=== PATIENT | female | born 1980 | race Caucasian/White ===

== ENCOUNTER 2019-03-06 05:10 | Inpatient (IN) | payer MEDICAID ==
[~2019-03-06] VITALS: Ht 162.6 cm; Wt 63.5 kg
[2019-03-06] VITALS (16 sets, daily range): BP systolic 90–111; BP diastolic 51–69; Ht 162.6 cm; Wt 63.5 kg
[~2019-03-06 05:10] MED LIST: ALB17R INH; AMO500 PO; AMOX500T10 PO; FERR325T24 PO; NAPR220C12 PO; PREN-67 PO
[2019-03-06] MEDS ORDERED: LR(*) 1000 ML BAG 1,000 ML IV SCH (05:11)
[2019-03-06] MEDS ORDERED: BUPIVACAINE 0.5% INJ 30ML VIAL EPI PRN (05:15)
[2019-03-06] MEDS ORDERED: LIDOCAINE/PF 2% 200MG/10ML AMP 200 MG/10 ML AMPUL EPI PRN (05:15)
[2019-03-06] MEDS ORDERED: cefOXitin/DEX(*) 2GM/50ML PREM 50 ML IVPB ONE (05:15)
[2019-03-06] MEDS ORDERED: LIDO/EPI 2% MPF 1:200,000 20ML EPI PRN (05:15)
[2019-03-06] MEDS ORDERED: FAMOTIDINE 20 MG/50 ML PREMIX IVPB ONE (05:15)
[2019-03-06] MEDS ORDERED: CITRIC ACID/SOD CITRATE 30 ML PO ONE (05:15)
[2019-03-06] MEDS ORDERED: BUPIVACAINE 0.25% MPF INJ EPI PRN (05:15)
[2019-03-06] MEDS ORDERED: METOCLOPRAMIDE 10 MG/2 ML SDV IVP ONE (05:15)
[2019-03-06] MEDS ORDERED: FENTANYL/ROPIVACAINE 100 ML BAG EPI PRN (05:15)
[2019-03-06] MEDS ORDERED: fentaNYL CITR 100 MCG/2 ML AMP IT PRN (05:15)
[2019-03-06] MEDS ORDERED: ONDANSETRON 4 MG/2 ML VIAL IVP PRN (05:15)
[2019-03-06 06:00] LABS: PLATELET COUNT, AUTOMATED 229 K/uL (150-450)
[2019-03-06] MEDS ORDERED: CITRIC ACID/SOD CIT 15 ML UDC ONE (06:01)
[2019-03-06] MEDS ORDERED: fentaNYL CITR 100 MCG/2 ML AMP ONE (06:11)
[2019-03-06] MEDS ORDERED: PHENYLEPHRINE 10 MG/1 ML VIAL ONE (06:11)
[2019-03-06] MEDS ORDERED: OXYTOCIN 10 UNIT/ML SDV ONE (06:11)
[2019-03-06] MEDS ORDERED: KETOROLAC 30 MG/ML VIAL ONE (06:12)
[2019-03-06] MEDS ORDERED: METHYLERGONOVINE MAL 0.2MG/ML ONE (06:43)
[2019-03-06] MEDS ORDERED: MISOPROSTOL 200 MCG TAB ONE (06:43)
[2019-03-06] MEDS ORDERED: CARBOPROST TROMETHAM 250MCG/ML IM ONLY ONE (06:43)
[2019-03-06] MEDS ORDERED: DLR(*) 1000 ML BAG 1,000 ML IV PRN (08:44)
[2019-03-06] MEDS ORDERED: OXYTOCIN 30 UNIT/NS 500 ML 500 ML IV PRN (08:44)
[2019-03-06] MEDS ORDERED: SIMETHICONE 80 MG CHEW CHEW PRN (08:45)
[2019-03-06] MEDS ORDERED: ONDANSETRON 4 MG/2 ML VIAL IV PRN (08:45)
[2019-03-06] MEDS ORDERED: INFLUENZA VIRUS VAC 0.5ML SYR IM ONE (08:45)
[2019-03-06] MEDS ORDERED: PROMETHAZINE 25 MG/ML 1 ML AMP IVP PRN (08:45)
[2019-03-06] MEDS ORDERED: LANOLIN OINT 7 GM TUBE TP PRN (08:45)
[2019-03-06] MEDS ORDERED: MEASLES,MUMP,RUBELLA VAC 0.5ML SUBQ ONE (08:45)
[2019-03-06] MEDS ORDERED: ZOLPIDEM TARTRATE 5 MG TAB PO PRN (08:45)
[2019-03-06] MEDS ORDERED: DIPHTH/TETANUS/ACEL. PERTUSSIS IM ONLY ONE (08:45)
[2019-03-06] MEDS ORDERED: ACETAMINOPHEN 325 MG TAB PO PRN (08:45)
[2019-03-06] MEDS ORDERED: IBUPROFEN 800 MG TAB PO SCH (09:00)
[2019-03-06] MEDS: FAMOTIDINE 20 MG TAB PO SCH ×2 (09:00→21:00)
--- NOTE | 2019-03-06 09:09 | Anesthesia OB Pre-Anes Eval ---
History of Present Illness Anesthesia Start Date: Mar 06, 2019 Anesthesia Start Time: 07:02 OB Anesthesia Diagnosis: repeat c/section EDC: Mar 10, 2019 : 6 Para: 4 Pain Ratin Heart Tones: 132 Result Diagram: 03/06/19 0547 Height (Inches): 64 Weight (Pounds): 140 Past Medical History Medical History: illicit drug use (Meth 1st trimester), other (smoker) Surgical History: Previous Anesthesia: spinal Attended Childbirth Classes?: No Hx Anesthesia Reactions: No Hx Family Anesthesia Reaction: No Home Meds Active Scripts Amoxicillin 500 Mg Tab (AMOXICILLIN 500 MG TAB) 500 Mg Tablet, 1 TAB PO Q8H for infection, #30 TAB Prov:ADAM MARTINEZ DO 04/09/15 Allergies: Coded Allergies: No Known Drug Allergies (Verified , 04/09/15) Anesthesia OB ROS Neurological: No migraines/headaches, No seizures, No neuropathy, No other ENT: Denies Tooth caps, Denies Loose teeth, Denies Chipped teeth, Denies Dentures, Denies Bridges, Denies Retainers, Denies Veneers, Denies Implants, Denies Tongue ring, Denies Other Pulmonary: smoker (pks/day/yrs) (1ppd) Airway Class: l Cardiovascular ROS: other (MVP) GI ROS: NPO Last Solids Date: Mar 05, 2019 Last Solids Time: 23:00 ROS: No Herpes, No STD(s), No Liver Disease, No Renal Disease, No Other Endocrine ROS: No diabetes, No gestational diabetes, No thyroid disorder, No other Musculoskeletal ROS: No low back pain, No low back injury, No scoliosis, No other ASA Classification: 2 Assessment and Plan Anesthesia Plan: SAB Anesthesia Stop Day: Mar 06, 2019 Anesthesia Stop Time: 08:50 NISHA GUZMAN CRNA Mar 06, 2019 09:09
[2019-03-06] MEDS ORDERED: FERR325T24 PO (09:19)
[2019-03-06] MEDS ORDERED: PREN-127 PO (09:19)
--- NOTE | 2019-03-06 09:31 | Post Operative Note ---
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
--- NOTE | 2019-03-06 09:39 | History & Physical ---
History of Present Illness Age of Patient: 38 : 6 Para or TPAL: 4 EDC per LMP: Mar 10, 2019 Estimated Gestational Age: 39.3 Chief Complaint History of Present Illness Presents for planned at 39 weeks. History of one prior with twin . This initially complicated by early methamphetamine use and she has been in rehab since and successful. She had a level 2 u/s that was negative for anomalies. She also desires sterilization. Past Medical, Surgical, Family and Obstetric Histories reviewed. [place] [facility] [place] History Patient's Blood Type: O Positive Rubella Status: Immune Obstetrical History: c/s x 1 Allergies: Coded Allergies: No Known Drug Allergies (Verified , 04/09/15) Med Rec Home Meds Reported Medications Ferrous Sulfate (IRON) 325 Mg Tablet, 325 MG PO 03/06/19 Vits W-Ca,Fe,Fa(<1MG) ( VITAMINS) 1 Each Tablet, 1 EACH PO DAILY, TAB 03/06/19 Discontinued Scripts Amoxicillin 500 Mg Tab (AMOXICILLIN 500 MG TAB) 500 Mg Tablet, 1 TAB PO Q8H for infection, #30 TAB Prov:JUANADAM Aldnaa DO 04/09/15 Review of Systems All Systems Reviewed/Normal: Yes, Except as Noted Exam General Exam Vital Signs Vital Signs Date Time Temp Pulse Resp B/P (MAP) Pulse Ox O2 Delivery O2 Flow Rate FiO2 03/06/19 09:15 63 18 96/65 (75) 100 Nasal Cannula 2.0 03/06/19 09:05 97.5 General Apperance: Alert/Awake/No Acute Distress Neuro: No Gross deficits Eyes: Normal Extraocular Movement & Vison ENT: Normal Cardiovascular: Regular Rate and Rhythm Respiratory: No Respiratory Distress Abdomen: Soft, Non-Tender, Non-Distended Extremities: No Cyanosis,Clubbing or Edema Integumentary: Skin Intact without Lesions or Rash Psychological: Alert & Oriented X3 Fetus FHT Category: I Medical Decision Making Data Points Result Diagram: 03/06/19 0547 VTE Prophylasis: Adult Deep Vein Thrombosis/Pulmonary: No Pharmacological Contraindicati: Pt at Low Risk for VTE Mechanical Contraindications: Pt at Low Risk for VTE 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 Reviewed pros/cons again and she desires. EVERTON MOLINA MD Mar 06, 2019 09:39
--- NOTE | 2019-03-06 09:56 | OPERATIVE REPORT 1 ---
EVENT DATE: March 06, 2019 SURGEON: Epifanio Thomas MD ANESTHESIA: Spinal, Kristen Jackson, RONALD FOAM RUBBER MOLDER: Thu Davison PA-C PREOPERATIVE DIAGNOSIS 1. Previous section. 2. 39 weeks intrauterine . 3. 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 4. Desired sterilization. POSTOPERATIVE DIAGNOSIS 1. Previous section. 2. 39 weeks intrauterine . 3. 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 4. Desired sterilization. PROCEDURE PERFORMED 1. Repeat low transverse section via Pfannenstiel skin incision. 2. tubal ligation. ESTIMATED BLOOD LOSS 500 cc. FLUIDS 1000 cc IV Crystalloid. URINE OUTPUT 225 cc. FINDINGS Female , cephalic. Apgars 9 and 10. Weight 2752 grams. Normal appearing uterus, tubes and ovaries. DESCRIPTION OF PROCEDURE The patient was brought to the operating room and spinal anesthetic was administered. She was then moved to the dorsal supine position with a leftward tilt and prepped and draped in the usual sterile fashion. A Pfannenstiel skin incision was made dissecting out the previous scar, and carried down through the rectus fascia. This was then extended laterally using the Muse scissors and the rectus fascia was dissected off the underlying rectus musculature using the Bovie. Muscles were in the midline. The peritoneum was entered sharply and extended superiorly and inferiorly and put on lateral stretch. The bladder blade was inserted. This exposed the lower uterine segment. The vesicouterine peritoneum was elevated and entered sharply and a bladder flap was created digitally. This was extended digitally using the scalpel. A low- transverse incision was made on the uterus and carried through to the intraamniotic space. There was clear fluid upon amniotomy. The incision was extended manually and a hand was inserted. The 's head was elevated through the incision when fundal pressure was applied. The infant's head delivered atraumatically. Mouth and nose were bulb suctioned, followed by further fundal pressure effecting delivery of the remainder of the baby without difficulty. The cord was clamped, cut and the was resuscitated and passed to the awaiting resuscitation team. Cord sample was obtained. The placenta was delivered manually. The uterus was exteriorized and cleared of clots and debris. Martínez clamps were placed for hemostasis while the uterine repair was performed with #1 Monocryl in a running locking stitch. A second suture of the same type was used to imbricate the first layer completing the two-layer closure. Upon completion of the uterine incision was completely hemostatic. Therefore, attention was turned to the tubal ligation in which the right fallopian tube was grasped with a Nayeli clamp in the isthmic portion. A knuckle of tube was created with a plain-gut tie and then it was doubly ligated. A 2 cm segment of tube was excised. The same procedure was followed on the contralateral side in likewise fashion, excising the 2 cm segment of tube. This was sent to pathology. All sites were hemostatic. Therefore, the uterus was returned to the abdomen and bilateral pelvic gutters were irrigated until cleared of clots and debris. The parietal peritoneum was repaired using a 3-0 Vicryl in a running nonlocking stitch. The rectus muscles were reapproximated in the midline with the same stitch. A few capillary bleeders were cauterized. The rectus fascia was repaired with an 0 Vicryl in a running nonlocking stitch. The subcuticular space was then irrigated and blotted dry and capillary bleeders were cauterized. The space was then closed with a 3-0 Vicryl plus in a running nonlocking stitch. The skin was repaired with a 4-0 Monocryl simple subdermal and covered with Dermabond skin adhesive. She tolerated the procedure. Sponge, lap, needle, and instrument counts were all correct x3. She was taken to recovery in stable condition. MALGORZATA
[2019-03-06] MEDS: oxyCODON/ACET (*)5/325MG (CII) 1 TAB TAB PO PRN ×3 (10:04→17:43)
[2019-03-06] MEDS: DOCUSATE CALCIUM 240 MG CAP PO SCH ×2 (10:05→21:00)
[2019-03-06] MEDS: NICOTINE 14 MG/24 HR PATCH TD SCH (10:07)
[2019-03-06] MEDS: KETOROLAC 30 MG/ML VIAL IVP SCH ×2 (13:17→19:14)
[2019-03-07] MEDS: oxyCODON/ACET (*)5/325MG (CII) 1 TAB TAB PO PRN ×6 (01:30→21:01)
[2019-03-07] MEDS: KETOROLAC 30 MG/ML VIAL IVP SCH (01:32)
[2019-03-07 03:14] VITALS: BP 88/57
[2019-03-07 06:34] LABS: PLATELET COUNT, AUTOMATED 188 K/uL (150-450)
[2019-03-07 07:37] VITALS: BP 90/55
--- NOTE | 2019-03-07 08:01 | OB/GYN Progress Note ---
OB Subjective Progress Notes Subjective Doing well. Pain well controlled and ambulating well. Stephens removed but has not voided yet. Tolerating regular diet. GI: NEG Nausea : Voiding Well Pain: Mild OB Objective Physical Exam Vital Signs Date Time Temp Pulse Resp B/P (MAP) Pulse Ox O2 Delivery O2 Flow Rate FiO2 03/07/19 03:14 73 16 88/57 (67) 91 Room Air 03/06/19 23:17 98.0 03/06/19 19:28 1.0 Intake and Output 03/07/19 07:01 Intake Total 2460 ml Output Total 4500 ml Balance -2040 ml Intake Oral 1460 ml IV Total 1000 ml Output Urine Total 4500 ml General Appearance: Alert/Awake/No Acute Distress Neurological: No Gross deficits Eyes: Normal Extraocular Movement & Vison Cardiovascular: Normal Rhythm & Peripheral Pulses, Regular Rate and Rhythm Respiratory: No Respiratory Distress, Clear to Auscultation Abdomen: Soft, Non-Tender, Non-Distended Incision: Clean, Dry, Intact, Dermabond Extremities: No Cyanosis,Clubbing or Edema Integumentary: Skin Intact without Lesions or Rash Psychological: Alert & Oriented X3, Appropriate Mood & Affect Result Diagram: 03/07/19 0606 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 Nursing assistance and comfort care. EVERTON MOLINA MD Mar 07, 2019 08:01
[2019-03-07] MEDS: DOCUSATE CALCIUM 240 MG CAP PO SCH ×2 (09:06→21:01)
[2019-03-07] MEDS: IBUPROFEN 800 MG TAB PO SCH ×2 (09:06→17:00)
[2019-03-07] MEDS: FAMOTIDINE 20 MG TAB PO SCH ×2 (09:06→21:01)
[2019-03-07] MEDS: NICOTINE 14 MG/24 HR PATCH TD SCH (09:11)
[2019-03-07 11:42] VITALS: BP 103/49
[2019-03-07 14:28] VITALS: BP 98/51
--- NOTE | 2019-03-07 17:44 | Anesthesia Post Eval Note ---
Anesthesia Post Eval Note Vital Signs 03/06/19 03/07/19 19:28 14:28 Temp 97.5 Pulse 76 Resp 16 B/P (MAP) 98/51 (67) Pulse Ox 93 O2 Delivery Room Air O2 Flow Rate 1.0 Pt able to participate in Eval: Yes Cardiovascular Status: Satisfactory Respiratory Status: Satisfactory Pain Managment: Satisfactory PO Nausea/Vomiting: Satisfactory Temperature Management: Satisfactory Mental Status: Satisfactory, Alert, Oriented X3 Post-Op Hydration Status: Satisfactory, Tolerating PO Well, Voiding w/o Difficulty Anesthesia Type: NISHA CORTES CRNA Mar 07, 2019 17:44
[2019-03-07 21:00] VITALS: BP 92/55
[2019-03-07 23:08] VITALS: BP 93/52
[2019-03-08] MEDS: IBUPROFEN 800 MG TAB PO SCH ×2 (00:57→09:23)
[2019-03-08] MEDS: oxyCODON/ACET (*)5/325MG (CII) 1 TAB TAB PO PRN ×3 (00:58→09:41)
[2019-03-08 03:10] VITALS: BP 95/57
[2019-03-08] MEDS ORDERED: OXYC-865 PO ×3 (08:17→09:21)
[2019-03-08] MEDS ORDERED: IBUP800T37 PO (08:17)
[2019-03-08] MEDS ORDERED: NICO1PAT87 TD (08:17)
--- NOTE | 2019-03-08 08:20 | OB/GYN Progress Note ---
OB Subjective Progress Notes Subjective Doing well. Pain well controlled and ambulating well. Has not showered yet. Voiding well. Ready to go home. GI: NEG Nausea : Voiding Well Pain: Mild OB Objective Physical Exam Vital Signs Date Time Temp Pulse Resp B/P (MAP) Pulse Ox O2 Delivery O2 Flow Rate FiO2 03/08/19 03:10 97.4 69 20 95/57 (70) 89 Room Air 03/06/19 19:28 1.0 Intake and Output 03/08/19 07:01 Intake Total 760 ml Output Total 1100 ml Balance -340 ml Intake Oral 760 ml Output Urine Total 1100 ml General Appearance: Alert/Awake/No Acute Distress Neurological: No Gross deficits Eyes: Normal Extraocular Movement & Vison Cardiovascular: Normal Rhythm & Peripheral Pulses, Regular Rate and Rhythm Respiratory: No Respiratory Distress, Clear to Auscultation Abdomen: Soft, Non-Tender, Non-Distended Incision: Clean, Dry, Intact, Dermabond Extremities: No Cyanosis,Clubbing or Edema Integumentary: Skin Intact without Lesions or Rash Psychological: Alert & Oriented X3, Appropriate Mood & Affect Result Diagram: 03/07/19 0606 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 F/U at office in 2 weeks. EVERTON MOLINA MD Mar 08, 2019 08:20
--- NOTE | 2019-03-08 08:21 | OB/GYN Discharge Summary ---
Discharge Summary Reason for Hosp/Final Diag: (1) Admission for sterilization (2) Previous section (3) Other specified aftercare following surgery Hospital Course & Plan: Reviewed discharge instructions and precautions. F/U at office in 2 weeks. Lates Vital Signs Vital Signs Date Time Temp Pulse Resp B/P (MAP) Pulse Ox O2 Delivery O2 Flow Rate FiO2 03/08/19 03:10 97.4 69 20 95/57 (70) 89 Room Air 03/06/19 19:28 1.0 Weight (Pounds): 140 Result Diagram: 03/07/19605 Condition: Improved Discharge: Home, Self Alf Meds Active Scripts Oxycodone Hcl/Acetaminophen (PERCOCET 5-325 MG TABLET) 1 Each Tablet, 1 EACH PO Q4H PRN for PAIN, #20 TAB 0 Refills Prov:EVERTON THOMAS MD 03/08/19 Reported Medications Ferrous Sulfate (IRON) 325 Mg Tablet, 325 MG PO 03/06/19 Vits W-Ca,Fe,Fa(<1MG) ( VITAMINS) 1 Each Tablet, 1 EACH PO DAILY, TAB 03/06/19 Discontinued Scripts Amoxicillin 500 Mg Tab (AMOXICILLIN 500 MG TAB) 500 Mg Tablet, 1 TAB PO Q8H for infection, #30 TAB Prov:ADAM MARTINEZ DO 04/09/15 Follow up 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 Thomas [phone] Follow up in: 6 wks PP or PO Discharge Diet: As Tolerates Discharge Activity: As Tolerates, No Heavy Lifting x 6 wks, No Heavy Lifting > 10lb, Pelvic Rest Copies to: EVERTON THOMAS MD ; EVERTON THOMAS MD Mar 08, 2019 08:21
[2019-03-08 08:39] VITALS: BP 89/69
[2019-03-08] MEDS: DOCUSATE CALCIUM 240 MG CAP PO SCH (09:23)
[2019-03-08] MEDS: FAMOTIDINE 20 MG TAB PO SCH (09:23)
[2019-03-08] MEDS: NICOTINE 14 MG/24 HR PATCH TD SCH (09:24)
== END 2019-03-08 12:13 | disposition home or self-care (01) | DRG 785 ==
LOC: OB 05:10
PROVIDERS: ADMIT Obstetrics & Gynecology; ATTEND Obstetrics & Gynecology
PROC: 10D00Z1 Extraction of Products of Conception, Low, Open Approach (ICD-10-PCS; principal; 2019-03-06 07:30)
PROC: 0UB70ZZ Excision of Bilateral Fallopian Tubes, Open Approach (ICD-10-PCS; 2019-03-06 07:30)
DX: O34.211 Maternal care for low transverse scar from previous cesarean delivery (principal); F15.11 Other stimulant abuse, in remission; Z30.2 Encounter for sterilization; Z87.891 Personal history of nicotine dependence; Z3A.39 39 weeks gestation of pregnancy; Z37.0 Single live birth
CPT/HCPCS: 36415; 80305; 85014; 85018; 85025; 86850; 86900; 86901; 88302; J0694; J1885; J2370; J2405; J2590; J2765; J3010; J7120